=== PATIENT | female | born 1965 | race Caucasian/White ===

== ENCOUNTER 2016-12-31 20:34 | Emergency (ER) | payer OTHER | END 2016-12-31 21:10 | disposition home or self-care (01) | LOC: ER 20:34 | DX: M79.641 Pain in right hand (principal); H92.01 Otalgia, right ear; J45.909 Unspecified asthma, uncomplicated; K21.9 Gastro-esophageal reflux disease without esophagitis; F17.210 Nicotine dependence, cigarettes, uncomplicated; Z90.710 Acquired absence of both cervix and uterus; Z90.49 Acquired absence of other specified parts of digestive tract; Z88.1 Allergy status to other antibiotic agents; Z88.5 Allergy status to narcotic agent; W19.XXXA Unspecified fall, initial encounter ==